=== PATIENT | male | born 1980 | race Caucasian/White ===

== ENCOUNTER 2018-07-19 04:41 | Emergency (ER) | payer BC ==
[2018-07-19] MEDS ORDERED: Acetaminophen 500 MG TAB ONE (04:54)
[2018-07-19] MEDS ORDERED: Oseltamivir 75 MG CAP ONE (05:17)
== END 2018-07-19 05:22 | disposition home or self-care (01) ==
LOC: BURERS 04:41
DX: J11.1 Influenza due to unidentified influenza virus with other respiratory manifestations (principal)
CPT/HCPCS: 87804; 99283